=== PATIENT | female | born 1955 | race Caucasian/White ===

== ENCOUNTER 2017-02-28 08:11 | Observation (INO) | payer BC ==
[~2017-02-28] VITALS: Ht 170.2 cm; Wt 104.0 kg
[~2017-02-28 08:11] MED LIST: BEN25 PO; EPIN0.3P4 IM; LISI20TA11 PO; PRED20TA PO; PRED50TA PO
[2017-02-28] MEDS ORDERED: SOD CHLORIDE 0.9% 1,000 ML IV STA (08:27)
[2017-02-28] MEDS ORDERED: HYDROmorphONE 1 MG/ML SYG IV STA (08:27)
[2017-02-28] MEDS ORDERED: ONDANSETRON 4 MG INJ IV STA (08:27)
--- NOTE | 2017-02-28 08:37 | ERD ---
ER Documentation Chief Complaint Chief Complaint vomiting , diarrhea x 1 day HPI This a 61-year-old female complaining of nausea vomiting diarrhea and epigastric pain that began around 3 AM today. Patient states she has had 3 or 4 episodes of vomiting and diarrhea is nonbilious and nonbloody. Says she has chills and a mild dull headache. No fever that has been documented. No cough no dysuria hematuria no back pain pain in the epigastric region is described as achy and is worse when she vomits. ROS All systems reviewed and are negative except as per history of present illness. Medications Home Meds Reported Medications Atorvastatin Calcium (Atorvastatin Calcium) 10 Mg Tablet, 10 MG PO QHS, #30 TAB 02/28/17 Hydrochlorothiazide* (Hydrochlorothiazide*) 25 Mg Tab, 25 MG PO DAILY, #30 TAB 02/28/17 Diphenhydramine Hcl* (Benadryl*) 25 Mg Cap, 25 MG PO DAILY Y for ALLERGIC REACTION, CAP 06/18/14 Epinephrine (Epipen 2-Vladimir) 0.3 Mg/0.3 Ml Pen.injctr, 0.3 MG IM DIRECTED Y for ALLERGIC REACTION, #1 EA 06/18/14 Lisinopril* (Lisinopril*) 20 Mg Tablet, 20 MG PO DAILY, TAB 02/21/14 Discontinued Scripts Diphenhydramine Hcl* (Benadryl*) 25 Mg Cap, 25 MG PO Q6 Y for ITCHING, #30 TAB Prov:VANESA AGUILAR. 10/11/14 Prednisone* (Prednisone*) 20 Mg Tab, 40 MG PO DAILY for 3 Days, TAB Prov:VANESA AGUILAR 10/11/14 Prednisone* (Prednisone*) 50 Mg Tablet, 50 MG PO QAM for 5 Days, TAB Prov:IVETT BECERRIL PA-C 09/04/14 Allergies Allergies: Coded Allergies: No Known Allergy (Unverified , 10/11/14) PMhx/Soc History of Surgery: No Anesthesia Reaction: No Hx 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 Disorder: No Hx Respiratory Disorders: No Hx Cardiac Disorders: Yes (HTN) Hx Psychiatric Problems: No Hx Miscellaneous Medical Probl: No Hx Alcohol Use: No Hx Substance Use: No Hx Tobacco Use: No Smoking Status: Never smoker FmHx Family History: No coronary disease Physical Exam Vitals Vital Signs Date Time Temp Pulse Resp B/P Pulse Ox O2 Delivery O2 Flow Rate FiO2 02/28/17 08:14 103.2 112 18 163/80 98 Physical Exam Const: Well-developed, well-nourished Head: Atraumatic, normocephalic Eyes: Normal Conjunctiva, PERRLA, EOMI, normal sclera, no nystagmus ENT: Normal External Ears, Nose and Mouth, moist mucus membranes. Neck: Full range of motion. No meningismus, no lymphadenopathy. Resp: Clear to auscultation bilaterally, no wheezing, rhonchi, rales Cardio: Regular rate and rhythm, no murmurs, S1 S2 present Abd: Soft, moderate epigastric tenderness non distended. Normal bowel sounds, no guarding or rebound, no pulsitile abdominal masses or bruits Skin: No petechiae or rashes, no ecchymosis , no maculopapular rash Back: No midline or flank tenderness Ext: No cyanosis, or edema, FROM x 4, normal inspection, neurovascularly intact x 4 Neur: Awake and alert, STR 5/5 x 4, sensation intact x 4, no focal findings, cerebellum intact Psych: Normal Mood and Affect Result Diagram: 02/28/17 0832 02/28/17 0832 Results 24 hrs Laboratory Tests Test 02/28/17 08:32 White Blood Count 6.610^3/ul Red Blood Count 5.3310^6/ul Hemoglobin 14.2g/dl Hematocrit 43.0% Mean Corpuscular Volume 80.7fl Mean Corpuscular Hemoglobin 26.6pg Mean Corpuscular Hemoglobin Concent 33.0g/dl Red Cell Distribution Width 14.7% Platelet Count 20576^3/UL Mean Platelet Volume 10.5fl Neutrophils % % Segmented Neutrophils % (Manual) 46% Band Neutrophils % (Manual) 26% Lymphocytes % % Lymphocytes % (Manual) 17% Reactive Lymphocytes % (Manual) 3% Monocytes % % Monocytes % (Manual) 8% Eosinophils % % Basophils % % Nucleated Red Blood Cells % 0.0/100WBC Neutrophils # 10^3/ul Neutrophils # (Manual) 3.110^3/ul Band Neutrophils # 1.710^3/ul Absolute Lymphocytes (Manual) 1.110^3/ul Lymphocytes # 10^3/ul Reactive Lymphocytes # 0.110^3/ul Monocytes # 10^3/ul Absolute Monocytes (Manual) 0.510^3/ul Eosinophils # 10^3/ul Basophils # 10^3/ul Nucleated Red Blood Cells # 10^3/ul Platelet Estimate NORMAL Anisocytosis 1+ Microcytosis 1+ Sodium Level 143mmol/L Potassium Level 2.8mmol/L Chloride Level 106mmol/L Carbon Dioxide Level 23mmol/L Anion Gap 17 Blood Urea Nitrogen 13mg/dl Creatinine 0.79mg/dl Glucose Level 150mg/dl Calcium Level 9.0mg/dl Total Bilirubin 1.3mg/dl Direct Bilirubin 0.00mg/dl Indirect Bilirubin 1.3mg/dl Aspartate Amino Transf (AST/SGOT) 23IU/L Alanine Aminotransferase (ALT/SGPT) 32IU/L Alkaline Phosphatase 108IU/L Total Protein 8.6g/dl Albumin 4.2g/dl Globulin 4.40g/dl Albumin/Globulin Ratio 0.95 Lipase 58U/L Current Medications Medications (Trade) Dose Ordered Sig/Emanuel Route PRN Reason Start Time Stop Time Status Last Admin Dose Admin Sodium Chloride (NS) 1,000 ml @ 1,000 mls/hr Q1H STAT IV 02/28/17 08:27 02/28/17 09:26 DC 02/28/17 08:41 Hydromorphone HCl (Dilaudid) 1 mg ONCE STAT IV 02/28/17 08:27 02/28/17 08:28 DC 02/28/17 08:40 Ondansetron HCl 4 mg 4 mg ONCE STAT IV 02/28/17 08:27 02/28/17 08:28 DC 02/28/17 08:40 Potassium Chloride/Sodium Chloride (NS-KCl 20 Meq) 1,000 ml @ 500 mls/hr Q2H IV 02/28/17 09:30 02/28/17 10:37 Acetaminophen 1000 mg 1,000 mg ONCE STAT PO 02/28/17 10:23 02/28/17 10:25 DC Ertapenem/Sodium Chloride (Invanz/NS) 100 ml @ 200 mls/hr ONCE ONCE IVPB 02/28/17 10:30 02/28/17 10:59 DC 02/28/17 11:31 IV Flush 10 ml 10 ml STK-MED ONCE .ROUTE 02/28/17 10:59 02/28/17 11:00 DC 02/28/17 11:11 Sodium Chloride (NS) 100 ml @ ud STK-MED ONCE .ROUTE 02/28/17 10:59 02/28/17 11:00 DC 02/28/17 11:11 Iohexol (Omnipaque 300mg/ ml) 150 ml STK-MED ONCE .ROUTE 02/28/17 10:59 02/28/17 11:00 DC 02/28/17 11:12 Procedures/MDM PROCEDURE: CT Abdomen and Pelvis with contrast. CLINICAL INDICATION: Abdominal pain TECHNIQUE: CT scan of the abdomen and pelvis with contrast was performed on a multidetector high-resolution CT scanner. Coronal and sagittal reformatted images were obtained from the axial source images. Images were reviewed on a high-resolution PACS workstation. 80 cc of Isovue 300 iodinated contrast was administered intravenously without reported complication. The total exam CTDI equals 23 mGy and the total exam DLP equals 1342 mGy-cm. One or more of the following dose reduction techniques were used: Automated exposure control, Adjustment of the mA and/or kV according to patient size, and/or use of iterative reconstruction technique. DICOM images are available. COMPARISON: None. FINDINGS: The lung bases are clear. The liver, pancreas, spleen, and adrenals are grossly unremarkable. 8 mm hyperdensity in the gallbladder may represent a gallbladder polyp or gallstone. No focal pericholecystic inflammatory changes. No hydronephrosis. No obstructing renal stone. No bowel obstruction. Normal-caliber appendix. Mild wall thickening and mucosal hyperenhancement of the colon and rectum. No significant retroperitoneal lymphadenopathy, ascites or evidence of pneumoperitoneum. Fibroid uterus. Mild aortic atherosclerosis. No rim-enhancing fluid collection. IMPRESSION: Mild wall thickening and mucosal hyperenhancement of the colon and rectum can be seen with proctocolitis in the appropriate clinical setting. No evidence of bowel obstruction or intra-abdominal abscess. Fibroid uterus. RPTAT: AA .Joey Rausch MD, Date Time Electronically viewed and signed by .Joey Rausch MD, on 02/28/2017 11:22 .T/ CC: TRACEY SANTOYO DO PROCEDURE: Right upper quadrant abdominal ultrasound. CLINICAL INDICATION: Abdominal pain TECHNIQUE: Marrero scale and color doppler ultrasound images of the right upper quadrant of the abdomen. COMPARISON: None FINDINGS: Pancreas: Visualized portions appear of normal echogenicity without focal lesions. Liver: Morphology:Normal in size. Contour:Normal, no evidence of nodularity. Echogenicity: Mild coarsening Focal lesions:None. Main portal vein: Patent with hepatopetal flow. Biliary System: Gallbladder wall: Normal thickness. Gallstones: No shadowing gallstones are seen. 15 mm nonshadowing echogenic focus is present. Intrahepatic bile ducts: Normal caliber. Common bile duct diameter (mm): 8.0 Kidneys: Right length (cm) : 13.0 Right cortical thickness: Normal. Echogenicity: Normal. Hydronephrosis: None. Renal calculi: None. Focal lesions: None. Free fluid/ascites: None. Other findings: None. IMPRESSION: Normal appearance of the gallbladder, no sonographic evidence of cholecystitis. No gallstones. 15 mm nonshadowing echogenic focus in the neck of the gallbladder may represent adherent sludge or a gallbladder wall polyp. Follow-up ultrasound in 12 months is recommended given the lack of prior examinations to establish the chronicity of this finding. Mild dilatation of the common bile duct measuring 8 mm. Mild coarsening of the hepatic echotexture may be due to early changes of steatosis or other diffuse parenchymal process. RPTAT: AADD .Vincent Harris MD, MD Date Time Electronically viewed and signed by .Vincent Harris MD, on 02/28/2017 10:04 .B/ CC: TRACEY SANTOYO DO Patient's white count is normal but has a significant bandemia. Blood cultures have been drawn the patient's been given Invanz. The patient evidence of proctitis and colitis on CAT scan. Will admit to the hospital for IV fluids and IV antibiotic therapy. No evidence of abscess or perforation at this time Departure Diagnosis: Primary Impression: Proctitis Additional Impressions: Colitis Bandemia Condition: Stable TRACEY SANTOYO DO Feb 28, 2017 08:37
[2017-02-28 09:03] LABS: ABNORMAL IP MESSAGE 1; HEMOGLOBIN 14.2 g/dl (12.0-16.0); MEAN CORPUSCULAR HEMOGLOBIN 26.6 pg (29.0-33.0); MEAN CORPUSCULAR VOLUME 80.7 fl (82.0-101.0); MEAN PLATELET VOLUME 10.5 fl (7.4-10.4); PLATELET COUNT 166 10^3/UL (140-415); RED BLOOD COUNT 5.33 10^6/ul (4.20-5.40); RED CELL DISTRIBUTION WIDTH 14.7 % (11.5-14.5); WHITE BLOOD COUNT 6.6 10^3/ul (4.8-10.8)
[2017-02-28 09:07] LABS: POSITIVE DIFF @See below
[2017-02-28 09:23] LABS: ALBUMIN 4.2 g/dl (3.3-4.9); ALBUMIN/GLOBULIN RATIO 0.95; BILIRUBIN,INDIRECT 1.3 mg/dl (0-1.1); BILIRUBIN,TOTAL 1.3 mg/dl (0.2-1.3); CREATININE 0.79 mg/dl (0.44-1.00); TOTAL PROTEIN 8.6 g/dl (6.1-8.1)
[2017-02-28 09:25] LABS: POTASSIUM 2.8 mmol/L (3.5-5.1)
[2017-02-28 09:39] LABS: ANISOCYTOSIS 1+ (0-0); MICROCYTOSIS 1+ (0-0); MONOCYTES % (M) 8 % (0-11); PLATELET ESTIMATE NORMAL; REACTIVE LYMPHOCYTES% (M) 3 % (0-0)
--- NOTE | 2017-02-28 10:04 | RADRPT ---
PROCEDURE: Right upper quadrant abdominal ultrasound. CLINICAL INDICATION: Abdominal pain TECHNIQUE: Marrero scale and color doppler ultrasound images of the right upper quadrant of the abdom en. COMPARISON: None FINDINGS: Pancreas: Visualized portions appear of normal echogenicity without focal lesions. Liver: Morphology:Normal in size. Contour:Normal, no evidence of nodularity. Echogenicity: Mild coarsening Focal lesions:None. Main portal vein: Patent with hepatopetal flow. Biliary System: Gallbladder wall: Normal thickness. Gallstones: No shadowing gallstones are seen. 15 mm nonshadowing echogenic focus is present. Intrahepatic bile ducts: Normal caliber. Common bile duct diameter (mm): 8.0 Kidneys: Right length (cm) : 13.0 Right cortical thickness: Normal. Echogenicity: Normal. Hydronephrosis: None. Renal calculi: None. Focal lesions: None. Free fluid/ascites: None. Other findings: None. IMPRESSION: Normal appearance of the gallbladder, no sonographic evidence of cholecystitis. No gallstones. 15 mm nonshadowing echogenic focus in the neck of the gallbladder may represent adherent sludge or a gallbladder wall polyp. Follow-up ultrasound in 12 months is recommended given the lack of prior ex aminations to establish the chronicity of this finding. Mild dilatation of the common bile duct measuring 8 mm. Mild coarsening of the hepatic echotexture may be due to early changes of steatosis or other diffuse parenchymal process. RPTAT: AADD .Vincent Harris MD, MD Date Time Electronically viewed and signed by .Vincent Harris MD, on 02/28/2017 10:04 .B/
[2017-02-28] MEDS ORDERED: ACETAMINOPHEN 500 MG TAB PO STA (10:23)
[2017-02-28] MEDS ORDERED: ERTAPENEM SODIUM 1 GM in SOD CHLORIDE 0.9% 100 ML IVPB ONE (10:30)
[2017-02-28] MEDS: NS + KCL 20 MEQ 1,000 ML IV SCH ×3 (10:37→13:30)
[2017-02-28] MEDS ORDERED: IOHEXOL 300MG/ML 150 ML BTL ONE (10:59)
[2017-02-28] MEDS ORDERED: SOD CHLORIDE 0.9% 100 ML ONE (10:59)
--- NOTE | 2017-02-28 11:23 | RADRPT ---
PROCEDURE: CT Abdomen and Pelvis with contrast. CLINICAL INDICATION: Abdominal pain TECHNIQUE: CT scan of the abdomen and pelvis with contrast was performed on a multidetector high-r esolution CT scanner. Coronal and sagittal reformatted images were obtained from the axial source im ages. Images were reviewed on a high-resolution PACS workstation. 80 cc of Isovue 300 iodinated cont rast was administered intravenously without reported complication. The total exam CTDI equals 23 mG y and the total exam DLP equals 1342 mGy-cm. One or more of the following dose reduction techniques were used: Automated exposure control, Adjustment of the mA and/or kV according to patient size, an d/or use of iterative reconstruction technique. DICOM images are available. COMPARISON: None. FINDINGS: The lung bases are clear. The liver, pancreas, spleen, and adrenals are grossly unremarkable. 8 mm hyperdensity in the gallbladder may represent a gallbladder polyp or gallstone. No focal perich olecystic inflammatory changes. No hydronephrosis. No obstructing renal stone. No bowel obstruction. Normal-caliber appendix. Mild wall thickening and mucosal hyperenhancement of the colon and rectum. No significant retroperitoneal lymphadenopathy, ascites or evidence of pneumoperitoneum. Fibroid briseida galina. Mild aortic atherosclerosis. No rim-enhancing fluid collection. IMPRESSION: Mild wall thickening and mucosal hyperenhancement of the colon and rectum can be seen with proctocol itis in the appropriate clinical setting. No evidence of bowel obstruction or intra-abdominal absces s. Fibroid uterus. RPTAT: AA .Joey Rausch MD, Date Time Electronically viewed and signed by .Joey Rausch MD, MD on 02/28/2017 11:22 .T/
[2017-02-28] MEDS ORDERED: HYDR25TA6 PO (11:30)
[2017-02-28] MEDS ORDERED: ATOR10TA65 PO (11:31)
[2017-02-28] MEDS ORDERED: SOD CHLORIDE 0.9% 1,000 ML IV SCH (13:24)
[2017-02-28] MEDS ORDERED: ONDANSETRON 4 MG INJ IV PRN ×2 (13:30→15:30)
[2017-02-28] MEDS ORDERED: ACETAMINOPHEN 325 MG TAB PO PRN ×2 (13:30→15:30)
[2017-02-28] MEDS ORDERED: DIPHENHYDRAMINE 25 MG CAP PO PRN (15:30)
[2017-02-28] MEDS ORDERED: MAGNESIUM HYDROXIDE 30ML CUP PO PRN (15:30)
[2017-02-28] MEDS ORDERED: DOCUSATE SODIUM 100 MG CAP PO PRN (15:30)
[2017-02-28] MEDS ORDERED: hydrALAzine 20 MG INJ IV PRN (15:30)
[2017-02-28] MEDS ORDERED: BISACODYL 10 MG SUPP PR PRN (15:30)
[2017-02-28] MEDS ORDERED: NACL 0.9% 3 ML SYG IV SCH (15:30)
[2017-02-28] MEDS ORDERED: POTASSIUM CHLORIDE 40 MEQ in SOD CHLORIDE 0.9% 1,000 ML IV SCH (15:30)
[2017-02-28] MEDS ORDERED: morphine 2 MG INJ IV PRN (15:30)
[2017-02-28] MEDS ORDERED: metroNIDAZOLE 500 MG TAB PO SCH (16:00)
[2017-02-28] MEDS: LEVOFLOXACIN 500MG/D5W (PMX) 100 ML IVPB SCH (16:00)
--- NOTE | 2017-02-28 16:03 | HP ---
Date/Time of Note Date/Time of Note DATE: 02/28/17 TIME: 15:43 Assessment/Plan VTE Prophylaxis VTE Prophylaxis Intervention: SCD's Assessment/Plan Assessment/Plan 61-year-old female with: 1. Proctocolitis on CAT scan of the abdomen and pelvis, abdominal pain nausea vomiting and diarrhea consistent with gastroenteritis/colitis. She does not appear toxic currently, however she was unable to tolerate p.o. She will be maintained on IV fluids. Correct hypokalemia, electrolyte repletion. Continue IV antibiotics. Clear liquid diet and advance as tolerated in the next 24 hours if stable. 2. Dehydration: Continue IV fluids 3. Hypokalemia likely secondary to hypovolemia and diarrhea, will replete through IV fluids, repeat BMP magnesium and phosphorus and replete adequately this evening. Hold hydrochlorothiazide 4. Hypertension: Continue lisinopril, hold off of hydrochlorothiazide in setting of hypovolemia and hypokalemia. Hydralazine as needed 5. Hyperlipidemia: Continue statins, check fasting lipid panel in a.m. Prophylaxis: Pepcid for GI prophylaxis, ambulation and SCDs for DVT prophylaxis Disposition: Med surg bed, observation status, IV fluids, IV antibiotics, advance diet as tolerated, hopefully discharge planning within 24-48 hours. HPI/ROS Admit Date/Time Admit Date/Time Hx of Present Illness Chief complaint: Abdominal pain, nausea, vomiting, diarrhea History of presenting illness: This is a 61-year-old female, with history of hypertension and hyperlipidemia, presented the emergency department with complaint of acute onset of abdominal pain mainly upper abdomen, nausea, vomiting, diarrhea and diaphoresis for the past 24 hours. She has not been able to tolerate much p.o., the last meal she had was yesterday at lunch when she had some spaghetti, she cooked it herself. She was doing well 48 hours ago , she apparently had some chicken from a local grocery store then. There is no one else with similar symptoms at home. She has not been able to tolerate much fluid either. She presented the emergency department with these ongoing symptoms, CAT scan of the abdomen and pelvis showed mild thickening of the colon and diagnosis of proctocolitis and gallbladder ultrasound is normal. Her laboratory workup did show a normal WBC however she does have a significant bandemia of 29%, hypokalemia with a potassium of 2.8. She has been given IV fluids along with IV antibiotics, ertapenem. She is being admitted to a medical surgical bed for IV fluids and hydration, repletion of electrolytes, further monitoring and antibiotic administration. I will have her on a clear liquid diet and depending how she does in the next 24 hours will be advanced. She is on observation. She denies any cardiopulmonary, genitourinary complaints. She denies any lower extremity edema. ROS Constitutional: fatigue, nausea, no complaints, poor po Eyes: no complaints ENT: no complaints Respiratory: no complaints Cardiovascular: no complaints Gastrointestinal: decreased appetite, diarrhea, nausea, pain (upper abdomen, epigastric area ), vomiting Genitourinary: no complaints Musculoskeletal: no complaints Skin: no complaints Neurologic: no complaints Endocrine: no complaints Lymphatic: no complaints Psychological: no complaints PMH/Family/Social Past Medical History Medical History: high cholesterol, hypertension Past Surgical History Past Surgical Hx: no surgical history Family History Significant Family History: no pertinent family hx Social History Alcohol Use: none Smoking Status: Never smoker Drug Use: none Exam/Review of Systems Vital Signs Vitals Vital Signs Date Time Temp Pulse Resp B/P Pulse Ox O2 Delivery O2 Flow Rate FiO2 02/28/17 13:26 78 20 125/70 99 Room Air 02/28/17 13:15 98.7 Exam Constitutional: alert, oriented, other (Obese), well developed Psych: no complaints Head: atraumatic, normocephalic Eyes: EOMI, nl conjunctiva, nl lids, nl sclera ENMT: nl external ears & nose, nl lips & teeth, other (Dry mucosa) Respiratory: clear to auscultation, normal air movement Cardiovascular: nl pulses, regular rate and rhythm Gastrointestinal: soft, tender (Upper abdomen/epigastric area) Extremities: normal pulses, other (No edema, clubbing or cyanosis) 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: SOCC[employer]ER II-XII intact, lethargic, nl mental status, nl speech Labs Result Diagram: 02/28/17 0832 02/28/17 0832 Medications Medications Current Medications Potassium Chloride/Sodium Chloride 1,000 ml @ 500 mls/hr Q2H IV Last administered on 02/28/17t 10:37; Admin Dose 500 MLS/HR; Start 02/28/17 at 09: 30 Sodium Chloride (NS) 1,000 ml @ 80 mls/hr [id number] IV ; Start 02/28/17 at 13:24 ; Stop 03/01/17 at 01:53 Ondansetron HCl (Zofran Inj) 4 mg Q6H PRN IV NAUSEA AND/OR VOMITING; Start at 15:30; Status UNV Acetaminophen (Tylenol Tab) 650 mg Q6H PRN PO PAIN LEVEL 1-3 OR FEVER; Start 02/28/17 at 15:30; Status UNV Acetaminophen/ Hydrocodone Bitart (Pana (5/325)) 1 tab Q6H PRN PO MODERATE PAIN LEVEL 4-6; Start 02/28/17 at 15:30; Status UNV Morphine Sulfate (morphine) 2 mg Q4H PRN IV SEVERE PAIN LEVEL 7-10; Start at 15:30; Status UNV Docusate Sodium (Colace) 100 mg Q12H PRN PO CONSTIPATION; Start 02/28/17 at 15 :30; Status UNV Magnesium Hydroxide (Milk Of Mag) 30 ml DAILY PRN PO CONSTIPATION; Start 02/28 at 15:30; Status UNV Bisacodyl (Dulcolax Supp) 10 mg DAILY PRN AR CONSTIPATION; Start 02/28/17 at 15:30; Status UNV Famotidine (Pepcid) 20 mg Q12 PO ; Start 02/28/17 at 21:00; Status UNV Hydralazine HCl (Apresoline) 10 mg Q8H PRN IV ELEVATED BLOOD PRESSURE; Start 02/28/17 at 15:30; Status UNV Atorvastatin Calcium (Lipitor) 10 mg QHS PO ; Start 02/28/17 at 21:00; Status UNV Diphenhydramine HCl (Benadryl) 25 mg DAILY PRN PO ALLERGIC REACTION; Start at 15:30; Status UNV Lisinopril 20 mg 20 mg DAILY PO ; Start 03/01/17 at 09:00; Status UNV Potassium Chloride 40 meq/ Sodium Chloride 1,020 ml @ 125 mls/hr Q8H10M IV ; Start 02/28/17 at 15:30; Status UNV Levofloxacin/ Dextrose (Levaquin 500mg/ D5W 100 ml (Pmx)) 100 ml @ 100 mls/hr Q24H IVPB ; Start 02/28/17 at 16:00; Status UNV Metronidazole (Flagyl) 500 mg Q8 PO ; Start 02/28/17 at 16:00; Status UNV Procedures Procedures PROCEDURE: Right upper quadrant abdominal ultrasound. CLINICAL INDICATION: Abdominal pain TECHNIQUE: Marrero scale and color doppler ultrasound images of the right upper quadrant of the abdomen. COMPARISON: None FINDINGS: Pancreas: Visualized portions appear of normal echogenicity without focal lesions. Liver: Morphology:Normal in size. Contour:Normal, no evidence of nodularity. Echogenicity: Mild coarsening Focal lesions:None. Main portal vein: Patent with hepatopetal flow. Biliary System: Gallbladder wall: Normal thickness. Gallstones: No shadowing gallstones are seen. 15 mm nonshadowing echogenic focus is present. Intrahepatic bile ducts: Normal caliber. Common bile duct diameter (mm): 8.0 Kidneys: Right length (cm) : 13.0 Right cortical thickness: Normal. Echogenicity: Normal. Hydronephrosis: None. Renal calculi: None. Focal lesions: None. Free fluid/ascites: None. Other findings: None. IMPRESSION: Normal appearance of the gallbladder, no sonographic evidence of cholecystitis. No gallstones. 15 mm nonshadowing echogenic focus in the neck of the gallbladder may represent adherent sludge or a gallbladder wall polyp. Follow-up ultrasound in 12 months is recommended given the lack of prior examinations to establish the chronicity of this finding. Mild dilatation of the common bile duct measuring 8 mm. Mild coarsening of the hepatic echotexture may be due to early changes of steatosis or other diffuse parenchymal process PROCEDURE: CT Abdomen and Pelvis with contrast. CLINICAL INDICATION: Abdominal pain TECHNIQUE: CT scan of the abdomen and pelvis with contrast was performed on a multidetector high-resolution CT scanner. Coronal and sagittal reformatted images were obtained from the axial source images. Images were reviewed on a high-resolution PACS workstation. 80 cc of Isovue 300 iodinated contrast was administered intravenously without reported complication. The total exam CTDI equals 23 mGy and the total exam DLP equals 1342 mGy-cm. One or more of the following dose reduction techniques were used: Automated exposure control, Adjustment of the mA and/or kV according to patient size, and/or use of iterative reconstruction technique. DICOM images are available. COMPARISON: None. FINDINGS: The lung bases are clear. The liver, pancreas, spleen, and adrenals are grossly unremarkable. 8 mm hyperdensity in the gallbladder may represent a gallbladder polyp or gallstone. No focal pericholecystic inflammatory changes. No hydronephrosis. No obstructing renal stone. No bowel obstruction. Normal-caliber appendix. Mild wall thickening and mucosal hyperenhancement of the colon and rectum. No significant retroperitoneal lymphadenopathy, ascites or evidence of pneumoperitoneum. Fibroid uterus. Mild aortic atherosclerosis. No rim-enhancing fluid collection. IMPRESSION: Mild wall thickening and mucosal hyperenhancement of the colon and rectum can be seen with proctocolitis in the appropriate clinical setting. No evidence of bowel obstruction or intra-abdominal abscess. Fibroid uterus. RPTAT: AA .Joey Rausch MD, Date Time Electronically viewed and signed by .Joey Rausch MD, on 02/28/2017 11:22 BRIDGET LUQUE Feb 28, 2017 15:54
[2017-02-28 16:21] LABS: CALCIUM 8.2 mg/dl (8.4-10.2); CREATININE 0.69 mg/dl (0.44-1.00); MAGNESIUM 1.9 mg/dl (1.7-2.5); PHOSPHORUS 3.6 mg/dl (2.5-4.9); POTASSIUM 3.1 mmol/L (3.5-5.1)
[2017-02-28] MEDS ORDERED: POTASSIUM CHLORIDE 20 MEQ POWDER FOR ORAL SOLN PO PRN ×3 (18:30)
[2017-02-28] MEDS: HYDROCODONE/APAP (5/325) TAB PO PRN (19:09)
[2017-02-28] MEDS: FAMOTIDINE 20 MG TAB PO SCH (21:00)
[2017-02-28] MEDS: ATORVASTATIN 10 MG TAB PO SCH (21:00)
[2017-02-28] MEDS: metroNIDAZOLE 500 MG/NS (PMX) 100 ML IVPB SCH (22:00)
[2017-02-28 22:39] VITALS: TEMP 98.7
[2017-03-01 01:05] VITALS: PULSE 66
[2017-03-01] MEDS: HYDROCODONE/APAP (5/325) TAB PO PRN ×2 (02:03→05:10)
[2017-03-01 02:47] VITALS: BP 138/69; RESP 20
[2017-03-01 03:00] VITALS: Ht 170.2 cm; Wt 104.0 kg
[2017-03-01] MEDS: metroNIDAZOLE 500 MG/NS (PMX) 100 ML IVPB SCH ×3 (04:00→22:32)
[2017-03-01] MEDS: POTASSIUM CHLORIDE 40 MEQ in SOD CHLORIDE 0.9% 1,000 ML IV SCH ×3 (05:00→19:20)
[2017-03-01 05:26] LABS: BASOPHILS % 0.3 % (0.0-2.0); HEMATOCRIT 36.8 % (37.0-47.0); HEMOGLOBIN 12.1 g/dl (12.0-16.0); LYMPHOCYTES # 0.9 10^3/ul (0.8-2.9); LYMPHOCYTES % 23.5 % (15.0-51.0); MEAN CORPUSCULAR HEMOGLOBIN 26.9 pg (29.0-33.0); MEAN CORPUSCULAR HGB CONC 32.9 g/dl (32.0-37.0); MEAN PLATELET VOLUME 9.9 fl (7.4-10.4); MONOCYTE # 0.4 10^3/ul (0.3-0.9); MONOCYTES % 10.1 % (0.0-11.0); NEUTROPHIL # 2.6 10^3/ul (1.6-7.5); NEUTROPHILS % 65.8 % (39.0-77.0); PLATELET COUNT 122 10^3/UL (140-415); RED BLOOD COUNT 4.49 10^6/ul (4.20-5.40); RED CELL DISTRIBUTION WIDTH 15.1 % (11.5-14.5)
[2017-03-01 06:25] LABS: ALBUMIN 3.3 g/dl (3.3-4.9); ALBUMIN/GLOBULIN RATIO 0.84; BILIRUBIN,INDIRECT 0.7 mg/dl (0-1.1); BILIRUBIN,TOTAL 0.7 mg/dl (0.2-1.3); CALCIUM 8.6 mg/dl (8.4-10.2); CREATININE 0.59 mg/dl (0.44-1.00); MAGNESIUM 2.2 mg/dl (1.7-2.5); PHOSPHORUS 3.1 mg/dl (2.5-4.9); TOTAL PROTEIN 7.2 g/dl (6.1-8.1)
[2017-03-01 07:57] VITALS: BP 133/71; RESP 18
[2017-03-01] MEDS: LISINOPRIL 20 MG TAB PO SCH (08:08)
[2017-03-01] MEDS: FAMOTIDINE 20 MG TAB PO SCH ×2 (08:08→20:34)
[2017-03-01] MEDS ORDERED: POTASSIUM CHLORIDE (SR) 20 MEQ TAB PO STA (09:13)
--- NOTE | 2017-03-01 11:13 | PN ---
Date/Time of Note Date/Time of Note DATE: 03/01/17 TIME: 11:07 Assessment/Plan VTE Prophylaxis VTE Prophylaxis Intervention: ambulation, SCD's Lines/Catheters IV C[facility]ter Type (from [facility]): Peripheral IV Urinary Cath still in place: No Assessment/Plan Assessment/Plan 61-year-old female with: 1. Mild proctocolitis on CAT scan of the abdomen and pelvis after reported 24 hours of nausea vomiting and diarrhea. Symptoms seems to have subsided so far, patient had one episode of bowel movement overnight, diarrhea. She denies abdominal pain this morning and is tolerating clear liquids. Repleting her electrolytes this morning, will start advancing her diet and continue IV fluids for now. If electrolytes repleted adequately, discharge planning for tomorrow. Continue antibiotics for now 2. Dehydration: Resolving, continue IV fluids 3. Hypokalemia likely secondary to hypovolemia and diarrhea, Continue IV fluids Replete magnesium, potassium as needed. Hold hydrochlorothiazide 4. Hypertension: Continue lisinopril, hold off of hydrochlorothiazide in setting of hypovolemia and hypokalemia. Hydralazine as needed 5. Hyperlipidemia: Continue statins, check fasting lipid panel in a.m. Prophylaxis: Pepcid for GI prophylaxis, ambulation and SCDs for DVT prophylaxis Disposition: Discharge planning in the next 24 hours if electrolytes repleted and tolerating p.o. Subjective 24 Hr Interval Summary Free Text/Dictation Patient is doing much better today, she only had one episode of diarrhea overnight. Hopefully stool studies were sent out. Repleting electrolytes, still hypokalemic today. Advance diet. Exam/Review of Systems Vital Signs Vitals Vital Signs Date Time Temp Pulse Resp B/P Pulse Ox O2 Delivery O2 Flow Rate FiO2 03/01/17 07:57 98.1 72 18 133/71 96 03/01/17 01:05 Room Air Intake and Output 02/28/17 02/28/17 03/01/17 15:00 23:00 07:00 Intake Total 100 ml Balance 100 ml Exam Constitutional: alert, obese, oriented, well developed Respiratory: clear to auscultation, normal air movement Cardiovascular: nl pulses, regular rate and rhythm Gastrointestinal: non-tender, soft Musculoskeletal: nl extremities to inspection, nl gait and stance Extremities: normal pulses, other (No edema, clubbing or cyanosis) 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: 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, nl mental status, nl speech, nl strength Results Result Diagram: 03/01/17 0511 03/01/17 0511 Results 24 hrs Laboratory Tests Test 02/28/17 15:45 03/01/17 05:11 Sodium Level 142 145 H Potassium Level 3.1 L 3.0 L Chloride Level 109 111 H Carbon Dioxide Level 24 24 Anion Gap 12 13 Blood Urea Nitrogen 12 12 Creatinine 0.69 0.59 Glucose Level 108 # 106 Calcium Level 8.2 L 8.6 Phosphorus Level 3.6 3.1 Magnesium Level 1.9 2.2 White Blood Count 4.0 #L Red Blood Count 4.49 Hemoglobin 12.1 Hematocrit 36.8 L Mean Corpuscular Volume 82.0 Mean Corpuscular Hemoglobin 26.9 L Mean Corpuscular Hemoglobin Concent 32.9 Red Cell Distribution Width 15.1 H Platelet Count 122 #L Mean Platelet Volume 9.9 Neutrophils % 65.8 Lymphocytes % 23.5 Monocytes % 10.1 Eosinophils % 0.0 Basophils % 0.3 Nucleated Red Blood Cells % 0.0 Neutrophils # 2.6 Lymphocytes # 0.9 Monocytes # 0.4 Eosinophils # 0.0 Basophils # 0.0 Nucleated Red Blood Cells # 0.0 Total Bilirubin 0.7 Direct Bilirubin 0.00 Indirect Bilirubin 0.7 Aspartate Amino Transf (AST/SGOT) 27 Alanine Aminotransferase (ALT/SGPT) 28 Alkaline Phosphatase 75 Total Protein 7.2 # Albumin 3.3 Globulin 3.90 H Albumin/Globulin Ratio 0.84 Triglycerides Level 93 Cholesterol Level 129 LDL Cholesterol, Calculated 78 HDL Cholesterol 32 L Cholesterol/HDL Ratio 4.0 Medications Medications Current Medications Ondansetron HCl (Zofran Inj) 4 mg Q6H PRN IV NAUSEA AND/OR VOMITING; Start at 15:30 Acetaminophen (Tylenol Tab) 650 mg Q6H PRN PO PAIN LEVEL 1-3 OR FEVER; Start 02/28/17 at 15:30 Acetaminophen/ Hydrocodone Bitart ([place] (5/325)) 1 tab Q6H PRN PO MODERATE PAIN LEVEL 4-6 Last administered on 02/28/17t 19:09; Admin Dose 1 TAB; Start 02/28/17 at 15:30 Morphine Sulfate (morphine) 2 mg Q4H PRN IV SEVERE PAIN LEVEL 7-10; Start at 15:30 Docusate Sodium (Colace) 100 mg Q12H PRN PO CONSTIPATION; Start 02/28/17 at 15 :30 Magnesium Hydroxide (Milk Of Mag) 30 ml DAILY PRN PO CONSTIPATION; Start 02/28 at 15:30 Bisacodyl (Dulcolax Supp) 10 mg DAILY PRN [place] CONSTIPATION; Start 02/28/17 at 15:30 Famotidine (Pepcid) 20 mg Q12 PO Last administered on 03/01/17 08:08; Admin Dose 20 MG; Start 02/28/17 at 21:00 Hydralazine HCl (Apresoline) 10 mg Q8H PRN IV ELEVATED BLOOD PRESSURE; Start 02/28/17 at 15:30 Atorvastatin Calcium (Lipitor) 10 mg QHS PO ; Start 02/28/17 at 21:00 Diphenhydramine HCl (Benadryl) 25 mg DAILY PRN PO ALLERGIC REACTION; Start at 15:30 Lisinopril 20 mg 20 mg DAILY PO Last administered on 03/01/17 08:08; Admin Dose 20 MG; Start 03/01/17 at 09:00 Levofloxacin/ Dextrose 100 ml @ 100 mls/hr Q24H IVPB ; Start 02/28/17 at 16:00 Metronidazole 100 ml @ 100 mls/hr Q8 IVPB Last administered on 03/01/17 04: 00; Admin Dose 100 MLS/HR; Start 02/28/17 at 22:00 Potassium Chloride/Sodium Chloride (KCl/NS) 1,020 ml @ 125 mls/hr Q8H10M IV Last administered on 03/01/17 05:00; Admin Dose 125 MLS/HR; Start 03/01/17 at 03:00 Influenza Virus Vaccine (Fluzone) 0.5 ml ONCE ONCE IM* ; Start 03/03/17 at 09: 00; Stop 03/03/17 at 09:01 BRIDGET LUQUE Mar 01, 2017 11:13
[2017-03-01 14:00] VITALS: BP 125/73; RESP 18
[2017-03-01] MEDS: LEVOFLOXACIN 500MG/D5W (PMX) 100 ML IVPB SCH (16:45)
[2017-03-01 19:23] VITALS: BP 136/75; RESP 19
[2017-03-01] MEDS: ATORVASTATIN 10 MG TAB PO SCH (20:34)
[2017-03-02 01:52] VITALS: BP 155/84; RESP 19
[2017-03-02] MEDS: POTASSIUM CHLORIDE 40 MEQ in SOD CHLORIDE 0.9% 1,000 ML IV SCH (03:49)
[2017-03-02 05:16] LABS: HEMATOCRIT 36.7 % (37.0-47.0); HEMOGLOBIN 12.1 g/dl (12.0-16.0); LYMPHOCYTES # 1.1 10^3/ul (0.8-2.9); LYMPHOCYTES % 31.5 % (15.0-51.0); MEAN CORPUSCULAR HEMOGLOBIN 27.3 pg (29.0-33.0); MEAN CORPUSCULAR VOLUME 82.8 fl (82.0-101.0); MEAN PLATELET VOLUME 10.6 fl (7.4-10.4); MONOCYTE # 0.3 10^3/ul (0.3-0.9); MONOCYTES % 8.6 % (0.0-11.0); NEUTROPHIL # 2.1 10^3/ul (1.6-7.5); NEUTROPHILS % 59.6 % (39.0-77.0); PLATELET COUNT 151 10^3/UL (140-415); RED BLOOD COUNT 4.43 10^6/ul (4.20-5.40); RED CELL DISTRIBUTION WIDTH 14.8 % (11.5-14.5); WHITE BLOOD COUNT 3.6 10^3/ul (4.8-10.8)
[2017-03-02 05:45] LABS: CALCIUM 8.6 mg/dl (8.4-10.2); CREATININE 0.64 mg/dl (0.44-1.00)
[2017-03-02] MEDS: metroNIDAZOLE 500 MG/NS (PMX) 100 ML IVPB SCH (06:40)
[2017-03-02 08:20] VITALS: BP 144/82; RESP 20
[2017-03-02] MEDS: LISINOPRIL 20 MG TAB PO SCH (08:53)
[2017-03-02] MEDS: FAMOTIDINE 20 MG TAB PO SCH (08:53)
[2017-03-02 09:04] LABS: MAGNESIUM 2.1 mg/dl (1.7-2.5); PHOSPHORUS 3.5 mg/dl (2.5-4.9)
[2017-03-02] MEDS ORDERED: LEVOFLOXACIN 500 MG TAB PO SCH (11:00)
[2017-03-02] MEDS ORDERED: LACTOBACILLUS RHAMNOSUS CAP PO SCH (11:00)
--- NOTE | 2017-03-02 12:25 | PN ---
Date/Time of Note Date/Time of Note DATE: 03/02/17 TIME: 12:22 Assessment/Plan VTE Prophylaxis VTE Prophylaxis Intervention: ambulation, SCD's Lines/Catheters IV Catheter Type (from Nrs): Peripheral IV Urinary Cath still in place: No Assessment/Plan Assessment/Plan 61-year-old female with: 1. Mild proctocolitis on CAT scan of the abdomen and pelvis after reported 24 hours of nausea vomiting and diarrhea. Symptoms resolved, WBC within normal, diarrhea resolved. Electrolytes within normal. Advancing to soft diet. Discharge home today. Continue Flagyl and Levaquin for 6 more days. Probiotics added. 2. Dehydration: Resolved 3. Hypokalemia likely secondary to hypovolemia and diarrhea: resolved 4. Hypertension: Resume home medications at discharge. 5. Hyperlipidemia: Continue statins Prophylaxis: Pepcid for GI prophylaxis, ambulation and SCDs for DVT prophylaxis Disposition: Discharge home today with outpatient follow-up with primary care physician within 1 week. Subjective 24 Hr Interval Summary Free Text/Dictation Patient doing well, tolerating full liquid diet, she will be advanced to soft diet for lunch today, if well tolerated discharge home today on oral antibiotics for 6 more days Exam/Review of Systems Vital Signs Vitals Vital Signs Date Time Temp Pulse Resp B/P Pulse Ox O2 Delivery O2 Flow Rate FiO2 03/02/17 08:20 98.5 70 20 144/82 95 03/01/17 01:05 Room Air Intake and Output 03/01/17 03/01/17 03/02/17 15:00 23:00 07:00 Intake Total 100 ml 1700 ml 1345 ml Output Total 250 ml Balance 100 ml 1450 ml 1345 ml Exam Constitutional: alert, oriented, well developed Respiratory: clear to auscultation, normal air movement Cardiovascular: nl pulses, regular rate and rhythm Gastrointestinal: non-tender, soft Musculoskeletal: nl extremities to inspection, nl gait and stance Extremities: normal pulses, other (No edema, clubbing or cyanosis) 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, nl mental status, nl speech, nl strength Results Result Diagram: 03/02/179 03/02/179 Results 24 hrs Laboratory Tests Test 03/02/17 04:29 White Blood Count 3.6 L Red Blood Count 4.43 Hemoglobin 12.1 Hematocrit 36.7 L Mean Corpuscular Volume 82.8 Mean Corpuscular Hemoglobin 27.3 L Mean Corpuscular Hemoglobin Concent 33.0 Red Cell Distribution Width 14.8 H Platelet Count 151 # Mean Platelet Volume 10.6 H Neutrophils % 59.6 Lymphocytes % 31.5 Monocytes % 8.6 Eosinophils % 0.0 Basophils % 0.0 Nucleated Red Blood Cells % 0.0 Neutrophils # 2.1 Lymphocytes # 1.1 Monocytes # 0.3 Eosinophils # 0.0 Basophils # 0.0 Nucleated Red Blood Cells # 0.0 Sodium Level 143 Potassium Level 4.0 Chloride Level 111 H Carbon Dioxide Level 25 Anion Gap 11 Blood Urea Nitrogen 8 Creatinine 0.64 Glucose Level 97 Calcium Level 8.6 Phosphorus Level 3.5 Magnesium Level 2.1 Medications Medications Current Medications Ondansetron HCl (Zofran Inj) 4 mg Q6H PRN IV NAUSEA AND/OR VOMITING; Start at 15:30 Acetaminophen (Tylenol Tab) 650 mg Q6H PRN PO PAIN LEVEL 1-3 OR FEVER; Start 02/28/17 at 15:30 Acetaminophen/ Hydrocodone Bitart ([place] (5/325)) 1 tab Q6H PRN PO MODERATE PAIN LEVEL 4-6 Last administered on 02/28/17 19:09; Admin Dose 1 TAB; Start 02/28/17 at 15:30 Morphine Sulfate (morphine) 2 mg Q4H PRN IV SEVERE PAIN LEVEL 7-10; Start at 15:30 Docusate Sodium (Colace) 100 mg Q12H PRN PO CONSTIPATION; Start 02/28/17 at 15 :30 Magnesium Hydroxide (Milk Of Mag) 30 ml DAILY PRN PO CONSTIPATION; Start 02/28 at 15:30 Bisacodyl (Dulcolax Supp) 10 mg DAILY PRN [place] CONSTIPATION; Start 02/28/17 at 15:30 Famotidine (Pepcid) 20 mg Q12 PO Last administered on 03/02/17 08:53; Admin Dose 20 MG; Start 02/28/17 at 21:00 Hydralazine HCl (Apresoline) 10 mg Q8H PRN IV ELEVATED BLOOD PRESSURE; Start 02/28/17 at 15:30 Atorvastatin Calcium (Lipitor) 10 mg QHS PO Last administered on 03/01/17 20: 34; Admin Dose 10 MG; Start 02/28/17 at 21:00 Diphenhydramine HCl (Benadryl) 25 mg DAILY PRN PO ALLERGIC REACTION; Start at 15:30 Lisinopril (Zestril) 20 mg DAILY PO Last administered on 03/02/17 08:53; Admin Dose 20 MG; Start 03/01/17 at 09:00 Influenza Virus Vaccine (Fluzone) 0.5 ml ONCE ONCE IM* ; Start 03/03/17 at 09: 00; Stop 03/03/17 at 09:01 Metronidazole (Flagyl) 500 mg Q8 PO ; Start 03/02/17 at 14:00 Levofloxacin (Levaquin) 500 mg DAILY PO Last administered on 03/02/17 12:08; Admin Dose 500 MG; Start 03/02/17 at 11:00 Lactobacillus Acidophilus/ Rhamnosus (Culturelle) 1 cap BID PO Last administered on 03/02/17 12:08; Admin Dose 1 CAP; Start 03/02/17 at 11:00 BRIDGET LUQUE Mar 02, 2017 12:25
--- NOTE | 2017-03-02 12:26 | PDOCDIS ---
Discharge Instructions CONDITION Patient Condition: Stable HOME CARE INSTRUCTIONS: Diet Instructions: Regular ACTIVITY: Activity Restrictions: No Restrictions FOLLOW UP/APPOINTMENTS Follow-up Plan Follow-up with primary care physician within 1 week Referral to gastroenterology in 4-6 weeks for elective colonoscopy as an outpatient. BRIDGET LUQUE Mar 02, 2017 12:26
[2017-03-02] MEDS ORDERED: LEVO500T72 PO (12:27)
[2017-03-02] MEDS ORDERED: LACT1CAP28 PO (12:27)
[2017-03-02] MEDS ORDERED: METR500T PO (12:27)
[2017-03-02] MEDS ORDERED: metroNIDAZOLE 500 MG TAB PO SCH (14:00)
[2017-03-03] MEDS ORDERED: INFLUENZA VIRUS VACCINE 0.5 ML (DISPENSING) IM* ONE (09:00)
== END 2017-03-02 16:10 | disposition home or self-care (01) ==
LOC: FTE 08:11 → MS1 13:25
PROVIDERS: ADMIT Internal Medicine; ATTEND Internal Medicine
DX: K51.30 Ulcerative (chronic) rectosigmoiditis without complications (principal); I10 Essential (primary) hypertension; E86.0 Dehydration; E87.6 Hypokalemia; E78.5 Hyperlipidemia, unspecified
CPT/HCPCS: 36415; 74177; 76705; 80048; 80053; 80061; 83690; 83735; 84100; 85025; 87040; 96374; 96375; G0378; J1170; J1335; J1956; J2405; J3480; J7030; Q9967

== ENCOUNTER 2018-03-13 14:33 | Emergency (ER) | payer BC ==
[~2018-03-13] VITALS: Wt 102.2 kg
[~2018-03-13 14:33] MED LIST changes: +ATOR10TA65 PO; +HYDR25TA6 PO; +LACT1CAP28 PO; +LEVO500T48 PO; +LISI-471 PO; -LISI20TA11 PO; +METR500T PO; -PRED20TA PO; -PRED50TA PO
[2018-03-13 14:35] VITALS: BP 165/92; PULSE 95; RESP 20
[2018-03-13] MEDS ORDERED: DIPHENHYDRAMINE 50 MG INJ IM ONE (15:00)
[2018-03-13] MEDS ORDERED: predniSONE 20 MG TAB PO ONE (15:00)
[2018-03-13] MEDS ORDERED: PRED20TA PO (15:22)
[2018-03-13] MEDS ORDERED: BEN25 PO (15:22)
--- NOTE | 2018-03-13 15:25 | ERD ---
ER Documentation Chief Complaint Chief Complaint rash to "all body" HPI 62-year-old female presents with an itchy rash on her trunk and extremities for the last day. She denies any new foods, new medications. Denies any previous history of allergies. She denies any fevers, shortness of breath, wheezing, chest pain, vomiting. ROS All systems reviewed and are negative except as per history of present illness. Medications Home Meds Active Scripts Diphenhydramine Hcl* (Benadryl*) 25 Mg Cap, 25 MG PO Q6, #15 CAP Prov:CLAUDIA BOCANEGRA MD 03/13/18 Prednisone* (Prednisone*) 20 Mg Tab, 40 MG PO DAILY for 4 Days, TAB Start March 14, 2018 Prov:CLAUDIA BOCANEGRA MD 03/13/18 Metronidazole* (Flagyl*) 500 Mg Tablet, 500 MG PO Q8 for 6 Days, TAB Prov:BRIDGET LUQUE 03/02/17 Levofloxacin* (Levaquin*) 500 Mg Tablet, 500 MG PO DAILY for 6 Days, TAB Prov:BRIDGET LUQUE 03/02/17 Lactobacillus Rhamnosus GG (Culturelle) 1 Each Capsule, 1 CAP PO BID, #60 CAP Prov:BRIDGET LUQUE 03/02/17 Reported Medications Atorvastatin Calcium (Atorvastatin Calcium) 10 Mg Tablet, 10 MG PO QHS, #30 TAB 02/28/17 Hydrochlorothiazide* (Hydrochlorothiazide*) 25 Mg Tab, 25 MG PO DAILY, #30 TAB 02/28/17 Diphenhydramine Hcl* (Benadryl*) 25 Mg Cap, 25 MG PO DAILY PRN for ALLERGIC LILY CTION, CAP 06/18/14 Epinephrine (Epipen 2-Vladimir) 0.3 Mg/0.3 Ml Pen.injctr, 0.3 MG IM DIRECTED PRN for ALLERGIC REACTION, #1 EA 06/18/14 Lisinopril* (Lisinopril*) 20 Mg Tablet, 20 MG PO DAILY, TAB 02/21/14 Allergies Allergies: Coded Allergies: No Known Allergy (Unverified , 10/11/14) PMhx/Soc History of Surgery: No Anesthesia Reaction: No Hx 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 Disorder: No Hx Respiratory Disorders: No Hx Cardiac Disorders: No Hx Psychiatric Problems: No Hx Miscellaneous Medical Probl: No Hx Alcohol Use: No Hx Substance Use: No Hx Tobacco Use: No FmHx Family History: No diabetes, No coronary disease, No other Physical Exam Vitals Vital Signs Date Temp Pulse Resp B/P (MAP) Pulse Ox O2 O2 Flow FiO2 Time Delivery Rate 03/13/18 98.9 95 20 165/92 96 14:35 (116) Physical Exam Const: No acute distress Head: Atraumatic Eyes: Normal Conjunctiva ENT: Normal External Ears, Nose and Mouth. Neck: Full range of motion. No meningismus. Resp: Clear to auscultation bilaterally Cardio: Regular rate and rhythm, no murmurs Abd: Soft, non tender, non distended. Normal bowel sounds Skin: No petechiae or purpura. Scattered blanching erythematous wheal type lesions some with central clearing. Back: No midline or flank tenderness Ext: No cyanosis, or edema Neur: Awake and alert Psych: Normal Mood and Affect Results 24 hrs Current Medications Medications Dose Sig/Emanuel Start Time Status Last (Trade) Ordered Route PRN Stop Time Admin Dose Reason Admin Prednisone 60 mg ONCE ONCE 03/13/18 DC 03/13/18 (Prednisone) PO 15:00 03/13/18 15:04 15:01 25 mg ONCE ONCE 03/13/18 DC 03/13/18 Diphenhydrami IM 15:00 03/13/18 15:04 ne HCl 15:01 (Benadryl) Procedures/MDM Patient presents with a one day history of itchy urticarial type lesions. There are a few that have a clinical appearance of erythema multiforme per there is no evidence of anaphylaxis, signs of purpura or life-threatening rashes. There is no evidence of hypoxemia or respiratory distress or signs of cellulitis. She may have a urticarial allergic reaction or possible viral exanthem. She will be treated with Benadryl, prednisone, primary care follow-up and return precautions. The patient's blood pressure was elevated (>120/80) but appears stable without evidence of hypertension emergency or urgency. The patient was counseled about the risks of hypertension and urged to pursue outpatient monitoring and therapy within a week with their primary care physician. I discussed the findings with the patient. I advised the patient to follow-up with the primary physician in about 1-2 days, sooner if needed and return if any concern. Departure Diagnosis: Primary Impression: Elevated blood pressure reading Additional Impression: Rash Condition: Stable Patient Instructions: Hives, Hypertension, To Be Confirmed Additional Instructions: PROBABLAMNETE UN ALLERGIA O VIRUS. Cheque otro vez con chiang doctor primario en el proximo martin or regresa para mas o nueva simptomas. CLAUDIA BOCANEGRA MD Mar 13, 2018 15:25
== END 2018-03-13 15:44 | disposition home or self-care (01) ==
LOC: FTE 14:33
DX: R03.0 Elevated blood-pressure reading, without diagnosis of hypertension (principal)
CPT/HCPCS: 96372; J1200; J7512; Z7502